=== PATIENT | female | born 1985 | race Caucasian/White ===

== ENCOUNTER 2021-12-20 08:54 | Emergency (ER) | payer SELFPAY ==
[~2021-12-20] VITALS: Ht 152.4 cm; Wt 54.9 kg
[2021-12-20 08:56] VITALS: BP 115/72
--- NOTE | 2021-12-20 09:03 | NUR ---
AT BEDSIDE FOR EVAL.
[2021-12-20] MEDS ORDERED: ACETAMINOPHEN ES 500 MG TABLET ONE (09:07)
[2021-12-20] MEDS ORDERED: IBUPROFEN 600 MG TABLET ONE (09:08)
--- NOTE | 2021-12-20 09:12 | NUR ---
URINE SPECIMEN COLLECTED AND SENT TO LAB.
--- NOTE | 2021-12-20 09:14 | NUR ---
URINE SAMPLE COLLECTED AND SENT TO LAB
[2021-12-20] MEDS ORDERED: IBUPROFEN 600 MG TABLET PO ONE (09:30)
[2021-12-20] MEDS ORDERED: ACETAMINOPHEN ES 500 MG TABLET PO ONE (09:30)
[2021-12-20] MEDS ORDERED: IBUP-1957 PO (09:44)
--- NOTE | 2021-12-20 09:53 | NUR ---
Patient discharged to home in stable condition. Written and verbal after care instructions given. Patient verbalizes understanding of instruction.
== END 2021-12-20 09:54 | disposition home or self-care (01) ==
LOC: ER 08:58
DX: S06.0X9A Concussion with loss of consciousness of unspecified duration, initial encounter (principal); Y04.8XXA Assault by other bodily force, initial encounter; Y93.89 Activity, other specified; Y92.89 Other specified places as the place of occurrence of the external cause; Y99.8 Other external cause status
CPT/HCPCS: 70450-TC; 84703-TC